=== PATIENT | male | born 1940 | race Caucasian/White ===

== ENCOUNTER → 2016-11-06 | Outpatient (CLI) | payer OTHER ==
--- NOTE | ~2016-11-06 | EXE ---
[facility] [address] [place] [employer] [place] [address] STRESS ECHOCARDIOGRAM Name: MAME BRITT Room #: NOEMI WareHolly#: [id number] Admission: 11/06/16 Attend Phys: Nick Clement, Discharge: Date of : 44 Date of Service: 11/06/16 1417 Report #: [id number] THIS REPORT FOR: //name// APPROVED REPORT Exam: Stress Echocardiogram Reason for Exam: CAD s/p CABG Patient Location: Out-Patient Stress Nurse: Gissel Bass RN HR: 56 bpm Medical History Medical History: CAD s/p CABG, HTN, Hyperlipidemia Cardiac Risk Factors: HTN, Hyperlipidemia Previous Cardiac Procedures: CABG Exercise History: Physically active Procedure The patient underwent an Exercise Stress Test using the Flavio Protocol. Blood pressure, heart rate, and EKG were monitored. An Echocardiogram was performed by metallurgy laboratory technician in four stages in quad fashion. At peak stress, four selected images were obtained and placed side by side with resting images for comparison. Testing Details Test: Exercise stress testing was performed using a Flavio protocol. HR Resting HR: 56 bpm Max Heart Rate (APMHR): 146 bpm Max HR Achieved: 144 bpm Target HR (85% APMHR): 124 bpm % of APMHR: 98 Recovery HR: 79 bpm HR response to stress: Normal HR response to stress BP Resting BP: 112/80 mmHg Max BP: 140/82 mmHg Recovery BP: 132/80 mmHg ECG Resting ECG: RBBB Stress ECG: RBBB Arrhythmia: None Recovery ECG: RBBB [facility] [address] [place] [address] STRESS ECHOCARDIOGRAM Name: BALWINDERMAME KRUSE Room #: NOEMI WareHolly#: [id number] Admission: 11/06/16 Attend Phys: Nick Clement, Discharge: Date of : 44 Date of Service: 11/06/16 1417 Report #: [id number] Clinical Reason for Termination: Maximal effort Exercise duration: 11.11 min Exercise capacity: 13.7 METs Overall Exercise Capacity for Age: Excellent Stress ECG Conclusion 1. SUBJECTIVELY NEGATIVE FOR ISCHEMIA 2. ELECTROCARDIOGRAPHICALLY NEGATIVE FOR ISCHEMIA 3. ADEQUATE FUNCTIONAL CAPACITY Pre-Stress Echo The resting Echocardiogram showed normal left ventricular contractility with an estimated Ejection Fraction of about 55-60%. Post-Stress Echo The stress Echocardiogram showed normal left ventricular contractility with an estimated Ejection Fraction of about 65-70%. Clinical Normal augmentation of myocardial wall segments using a 17 segment model. Conclusion Clinical Response: Non-ischemic Stress ECG Response: Non-ischemic Stress Echo Images: Non-ischemic 1. LOW RISK STUDY Compared to the prior study dated 10/13/2012, . Other Information Study Quality: Excellent <Conclusion> 1. LOW RISK STUDY <ELECTRONICALLY SIGNED> By: Bruce Warren MD 11/06/16 1417 16 16 Bruce Warren MD /INF
== END ==
LOC: CV 11:21
DX: I65.29 Occlusion and stenosis of unspecified carotid artery (principal)

== ENCOUNTER 2019-03-24 10:25 | Inpatient (IN) | payer OTHER ==
[2019-03-24] VITALS (7 sets, daily range): BP systolic 106–119; BP diastolic 47–62
[~2019-03-24] VITALS: Ht 180.3 cm; Wt 81.2 kg
[2019-03-24 10:43] LABS: ABSOLUTE NEUTROPHILS 5.5 thou/uL (1.4-8.2); BASOPHILS 0.5 % (0.0-2.0); HEMATOCRIT 45.2 % (42.0-52.0); HEMOGLOBIN 14.4 gm/dL (14.0-18.0); LYMPHOCYTES 7.9 % (24.0-44.0); MCH 23.1 pg (26.0-34.0); MCHC 31.8 g/dL (28.0-37.0); MCV 72.7 fL (80.0-100.0); MONOCYTES 4.6 % (1.0-8.0); PLATELET COUNT 284 thou/uL (150-400); RBC 6.22 mil/uL (4.50-6.00); RDW 19.3 % (10.5-14.5); WBC 6.3 thou/uL (4.0-11.0)
[2019-03-24] MEDS ORDERED: HYDREA 500 MG500 M1 PO (10:43)
[2019-03-24] MEDS ORDERED: NORVASC10 MG PO (10:44)
[2019-03-24] MEDS ORDERED: ACCUPRIL10 MG PO (10:44)
[2019-03-24] MEDS ORDERED: PRAVACHOL40 MG PO (10:45)
[2019-03-24] MEDS ORDERED: CRESTOR20 MG PO (10:45)
[2019-03-24] MEDS ORDERED: ASPIRIN325 PO (10:45)
[2019-03-24] MEDS ORDERED: COUMADIN 5 MG TA5 M1 PO (10:45)
[2019-03-24] MEDS ORDERED: FISH OIL 1,001000 M2 PO (10:45)
[2019-03-24] MEDS ORDERED: MULTIVITAMINS PO (10:46)
[2019-03-24] MEDS ORDERED: VITAMIN E400 UNIT PO (10:46)
[2019-03-24] MEDS ORDERED: ZYRTEC10 M5 PO (10:46)
[2019-03-24 10:51] LABS: CREATININE 1.3 mg/dL (0.7-1.3); POTASSIUM 3.8 mmol/L (3.5-5.1)
[2019-03-24 10:57] LABS: ALBUMIN 3.7 g/dL (3.4-5.0); DIRECT BILIRUBIN 0.3 mg/dL (<0.1-0.3); TOTAL BILIRUBIN 0.7 mg/dL (<0.1-1.0); TOTAL PROTEIN 7.4 g/dL (6.4-8.2)
[2019-03-24 11:37] LABS: ANISOCYTOSIS 1+; MICROCYTES 2+; PLATELET ESTIMATE NORMAL
--- NOTE | 2019-03-24 13:04 | NUR ---
ED NURSE CALLED TO GIVE REPORT TO INPATIENT NURSE AND WAS TOLD THE PT HAD NOT YET BEEN ASSIGNED A NURSE AND ED NURSE WILL HAVE TO WAIT FOR A RETURN CALL TO GIVE REPORT
[2019-03-24 17:50] LABS: INR 1.9; PROTIME 19.3 Seconds (9.3-11.4)
[2019-03-24 18:04] LABS: URINE BILIRUBIN NEGATIVE (Negative); URINE BLOOD NEGATIVE (Negative); URINE CLARITY CLEAR; URINE COLOR YELLOW; URINE GLUCOSE-RANDOM* NEGATIVE (Negative); URINE KETONES TRACE (Negative); URINE LEUKOCYTES-REFLEX NEGATIVE (Negative); URINE NITRITE-REFLEX NEGATIVE (Negative); URINE PROTEIN (DIPSTICK) NEGATIVE (Negative)
--- NOTE | 2019-03-24 20:06 | NUR ---
80 YO MALE ADMITTED TO 448. A&OX4. IV INTACT IN R AC. ORIENTED PT TO ROOM/CALL LIGHT. PT AT 1850 GOT UP TO USE THE BATHROOM W/O CALLING FIRST, ASSISTED PT TO BATHROOM. PT THEN FOUND ON FLOOR IN BATHROOM FALL WAS NOT WITNESSED. PT STATES HE DID NOT HURT HIMSELF. PT EDUCATED ON IMPORTANCE OF CALLING FOR ASSIST. FAMILY WAS NOTIFIED OF THE FALL, NOTIFIED. BED ALARM ON.
[2019-03-25 00:37] VITALS: BP 109/60
--- NOTE | 2019-03-25 02:15 | NUR ---
assumed care of pt @1900. pt was found on the bathroom floor, assessment completed and pt transfered back to bed. pt is a&ox4. ambulates with steady gait and standby assist. pt stated that he collapsed at home before been rushed to the ED. pt v/s stable. denies pain. fall prec in placed. call light within reach. no s/s of distress. will cont to monitor
[2019-03-25 03:11] VITALS: BP 118/70
[2019-03-25 05:49] LABS: HEMATOCRIT 39.9 % (42.0-52.0); HEMOGLOBIN 12.8 gm/dL (14.0-18.0); MCH 23.1 pg (26.0-34.0); MCHC 32.1 g/dL (28.0-37.0); RBC 5.54 mil/uL (4.50-6.00); RDW 19.7 % (10.5-14.5); WBC 4.6 thou/uL (4.0-11.0)
[2019-03-25 08:45] VITALS: BP 105/64
--- NOTE | 2019-03-25 10:01 | NUR ---
Nutrition: Assessed due to consult for weight change. Admitted w/ fever, community acquired pneumonia. On a regular diet. States he wasn't eating much Sun through Fri admission, but finished nearly 100% of breakfast this AM (eating all but his cereal). Already notes a huge change in appetite level. Wt loss extremely minimal, weighing 182# prior to recent acute illness < 1 wk ago, with current 179# admit wt. This reflects a 3# weight change - 1.6% insigificant wt change. He states gradually over 2-3+ yrs he has lost 20#, but was very aware of what he was doing and his eating habits. Remains at a very healthy wt and BMI 25 kg/m2. Expressed this to pt and foods to prioritize. NO further nutrition needs/concerns. Low nutrition risk.
--- NOTE | 2019-03-25 10:44 | NUR ---
INITIAL ASSESSMENT: Received high risk nursing referral. SW reviewed chart and spoke with nursing. Pt was admitted from home due to pneumonia. Pt is currently on IV abx. Pt had fever of 103.8 upon arrival in ER. SW met with pt and at bedside. Introduced role of SW. Pt is alert/orientated x 4. Pt reports he and his live at home. 2 steps to enter. 15 steps to go to the bottom level of the home. All of pt's needs can be met on the main level. Prior to admission, pt was independent with ADLs. No use of DME. No hx of services or SNF/Rehab placement. Pt's PCP is Dr. Mays. Plan is for pt to discharge home when medically stable. Attending physician to order therapy to evaluate pt for discharge needs. SW is following to assist as needed with discharge planning.
--- NOTE | 2019-03-25 18:27 | NUR ---
MEDI FINISH SANDER HERE TO RELOCATION MANAGER AND TRANSPORT PATIENT TO [facility]. IV ERICKSON LEFT PT TO HAVE IV ABTS THERE. SECURITY BROUGHT PATIENTS BELONGINGS THAT SHE HAD LOCKED UP. ALL BELONGINGS PACKED AND SENT WITH PATIENT.
--- NOTE | 2019-03-25 20:02 | NUR ---
PT HAS BEEN UP IN BEDSIDE CHAIR FOR MOST OF DAY . ATE ALL OF MEALS AND DRANK CHOCOLATE SUPPLEMENT AT [employer], THIS NURSE CLARIFIED ORDER. HAD IV ABT'S XS 2 W/O DIFFICULTY. PT PLEASANT AND COOPERATIVE WITH CARE.
[2019-03-25 20:11] VITALS: BP 116/63
[2019-03-26 05:08] VITALS: BP 124/74
[2019-03-26 05:13] LABS: HEMATOCRIT 41.5 % (42.0-52.0); MCH 22.9 pg (26.0-34.0); MCHC 31.3 g/dL (28.0-37.0); MCV 73.1 fL (80.0-100.0); RBC 5.68 mil/uL (4.50-6.00); WBC 4.7 thou/uL (4.0-11.0)
--- NOTE | 2019-03-26 05:24 | NUR ---
ASSUMED CARE OF PT AT 1900HRS. PT AOX4 AND LETS NEEDS BE KNOWN. FALL PRECAUTION IN PLACE. ABX TREATMENT CONTINUED. PT WAS ABLE TO SLEEP PART OF THE SHIFT. NO S/S OF ACUTE DISTRESS. WILL CONTINUE TO MONITOR.
[2019-03-26 05:27] LABS: CALCIUM 8.2 mg/dL (8.5-10.1); CREATININE 0.9 mg/dL (0.7-1.3); POTASSIUM 3.6 mmol/L (3.5-5.1)
[2019-03-26 08:39] VITALS: BP 106/77
[2019-03-26] MEDS ORDERED: CEFDINIR300 MG PO (12:42)
--- NOTE | 2019-03-26 14:29 | NUR ---
PHYSICIAN INDICATED THAT PT IS MEDICALLY STABLE TO DC HOME THIS DAY. HE HAD INITIALLY ORDERED FOR PT TO HAVE HH PT AND OT. CM DISCUSSED THIS WITH PT AND HE INDICATED HE WOULD PREFER TO GO TO OP PT AT [facility]. CM CONFIRMED WITH DR. SALINAS THAT HE WS AGREEABLE WITH PT DOING OUTPATIENT THERAPY AND HE INDICATED HE WAS. PT IS TO DC HOME THIS DAY AND SET UP OUTPATIENT APPOINTMENT FOR THERAPY AT [facility] IN [facility]. NO OTHER CM INTERVENTION INDICATED. CASE CLOSED.
[2019-03-26 15:31] VITALS: BP 106/77
--- NOTE | 2019-03-26 20:52 | NUR ---
Received awake on bed. Due medications given as precribed, able to swallow meds w/o difficulty. A+Ox4. On room air. With SL at R AC. Vital signs stable. Falls risk- falls bundle in place; Up ad migdalia, able to walk to the bathroom with gait belt on and standby assist. With at bedside. Pt seen by Dr Mays this AM, may go home after PM dose of IV antibiotics- pt informed. Discharge order made by Dr Mays, pt to go home with - CM informed; CM informed that pt prefers to have OT/PT as outpatient- CM called Dr Mays and he said that he is ok with it. Pt reported that he already set up appointment with [facility] for his therapies. Verified with Dr Mays re: prescription for Cefdinir- he already called in to pt's pharmacy- pt informed. Discharge instructions, follow up schedule, and med care notes given and instructed to pt. IV discontinued. Pt fetched by his , brought down via wheelchair by volunteer transport with his personal belongings.
== END 2019-03-26 16:41 | disposition home or self-care (01) | DRG 871 ==
LOC: ER 10:25 → EROBS 12:30 → 4S 12:30 → ENTRNSPT 03-26 16:29 → 4S 03-26 16:41
PROVIDERS: Emergency Medicine; ADMIT Family Medicine
DX: A41.9 Sepsis, unspecified organism (principal); J18.9 Pneumonia, unspecified organism; I10 Essential (primary) hypertension; E78.00 Pure hypercholesterolemia, unspecified; I48.91 Unspecified atrial fibrillation; J40 Bronchitis, not specified as acute or chronic; Z95.1 Presence of aortocoronary bypass graft; Z88.2 Allergy status to sulfonamides; Z79.82 Long term (current) use of aspirin; Z79.899 Other long term (current) drug therapy
CPT/HCPCS: 10102

== ENCOUNTER 2019-03-27 15:47 | Inpatient (IN) | payer OTHER ==
[~2019-03-27] VITALS: Ht 180.3 cm; Wt 85.3 kg
[~2019-03-27 15:47] MED LIST: ACCUPRIL10 MG PO; ASPIRIN325 PO; CEFDINIR300 MG PO; COUMADIN 5 MG TA5 M1 PO; CRESTOR20 MG PO; FISH OIL 1,001000 M2 PO; HYDREA 500 MG500 M1 PO; MULTIVITAMINS PO; NORVASC10 MG PO; PRAVACHOL40 MG PO; VITAMIN E400 UNIT PO; ZYRTEC10 M5 PO
[2019-03-27 15:49] VITALS: BP 79/53
[2019-03-27 16:23] LABS: ABSOLUTE NEUTROPHILS 6.8 thou/uL (1.4-8.2); BASOPHILS 0.3 % (0.0-2.0); EOSINOPHILS 0.1 % (0.0-3.0); HEMATOCRIT 42.6 % (42.0-52.0); HEMOGLOBIN 13.5 gm/dL (14.0-18.0); LYMPHOCYTES 4.2 % (24.0-44.0); MCHC 31.6 g/dL (28.0-37.0); MCV 72.7 fL (80.0-100.0); MONOCYTES 2.5 % (1.0-8.0); PLATELET COUNT 288 thou/uL (150-400); POLYS 92.9 % (36.0-66.0); RBC 5.86 mil/uL (4.50-6.00); WBC 7.3 thou/uL (4.0-11.0)
[2019-03-27 16:30] LABS: CALCIUM 8.5 mg/dL (8.5-10.1); CREATININE 1.3 mg/dL (0.7-1.3); POTASSIUM 4.1 mmol/L (3.5-5.1)
[2019-03-27 16:36] LABS: ALBUMIN 3.1 g/dL (3.4-5.0); TOTAL BILIRUBIN 0.6 mg/dL (<0.1-1.0); TOTAL PROTEIN 6.8 g/dL (6.4-8.2)
[2019-03-27 17:03] LABS: HYPOCHROMASIA 2+; MACROCYTES 1+; MICROCYTES 1+
[2019-03-27 19:07] LABS: INR 2.8; PROTIME 29.4 Seconds (9.3-11.4)
[2019-03-27 19:43] VITALS: BP 95/56
[2019-03-27 20:02] VITALS: BP 95/56
[2019-03-27 20:38] VITALS: BP 114/62
[2019-03-28 00:22] VITALS: BP 131/93
--- NOTE | 2019-03-28 03:26 | NUR ---
ASSESSMENTS CHARTED. MEDS CHARTED. PATIENT ARRIVED ON UNIT FROM THE ED AROUND 2034 WITH FAILED OUTPATIENT THERAPY. PT FEBRILE, CHILLS, HYPOTENSION AND PNEUMONIA. SETTLED INTO BED, ADMITTED INTO THE COMPUTER SYSTEM. MEDS STARTED. PLAN OF CARE IS FOR PATIENT TO RECEIVE MORE IV ANTIBIOTICS. PATIENT WILL HAVE FAMILY BRING HIS CPAP FROM HOME. UP WITH ASSIST.
[2019-03-28 04:45] VITALS: BP 97/60
[2019-03-28 04:57] LABS: INR 3.5; PROTIME 35.9 Seconds (9.3-11.4)
[2019-03-28 05:15] LABS: ALBUMIN 2.5 g/dL (3.4-5.0); CALCIUM 7.4 mg/dL (8.5-10.1); CREATININE 1.1 mg/dL (0.7-1.3); PHOSPHORUS 2.9 mg/dL (2.5-4.9); POTASSIUM 3.6 mmol/L (3.5-5.1)
[2019-03-28 07:15] VITALS: BP 94/59
[2019-03-28 11:10] VITALS: BP 97/63
[2019-03-28 15:30] VITALS: BP 99/60
--- NOTE | 2019-03-28 17:13 | NUR ---
ASSUMED CARE AT SHIFT, ALERT AND ORIENTED X4. VSS AND AFEBRILE. SCHEDULED MEDS GIVEN PRESCIPED. DENIED ANY DISCOMFORT AND WILL CONTINUE WITH CURRENT POC.
[2019-03-28 19:45] VITALS: BP 102/64
--- NOTE | 2019-03-28 23:50 | NUR ---
ASSESSMENTS CHARTED, MEDS GIVEN. RESTING EASILY DURING SHIFT. CONTINUING FLUIDS AND ANTIBIOTIC TREATMENTS. PLAN OF CARE IS TO HAVE SWALLOW EVALUATION IN MORNING. DENIES PAIN. FALL PRECAUTIONS IN PLACE
[2019-03-29 04:31] VITALS: BP 125/56
[2019-03-29 07:20] VITALS: BP 92/60
[2019-03-29 11:15] VITALS: BP 110/70
[2019-03-29 15:20] VITALS: BP 102/61
--- NOTE | 2019-03-29 17:36 | NUR ---
ASSESMENT DOCUMENTED, VSS AND AFEBRILE. PATIENT PASS THE SWALLOW EVAL. HAD 3 LOOSE BM AND CDEF IS NEGATIVE. PROGRESSING TOWARDS GOALS AND WILL CONTINUE WITH POC.
[2019-03-29 21:30] VITALS: BP 127/71
[2019-03-30 05:22] VITALS: BP 120/65
--- NOTE | 2019-03-30 05:57 | NUR ---
pt resting thru the noc , no c/o pain, up to bathroom with sba, vss, hopes to go home today, will con't to monitor per ppoc.
[2019-03-30 07:25] VITALS: BP 120/82
[2019-03-30 07:53] LABS: HEMATOCRIT 35.8 % (42.0-52.0); MCHC 31.7 g/dL (28.0-37.0); MCV 72.5 fL (80.0-100.0); RBC 4.93 mil/uL (4.50-6.00); RDW 20.8 % (10.5-14.5); WBC 6.2 thou/uL (4.0-11.0)
[2019-03-30 08:00] LABS: HEMOGLOBIN 11.3 gm/dL (14.0-18.0)
[2019-03-30 08:05] LABS: CALCIUM 8.3 mg/dL (8.5-10.1); CREATININE 0.9 mg/dL (0.7-1.3); POTASSIUM 3.6 mmol/L (3.5-5.1)
[2019-03-30] MEDS ORDERED: AZITHROMYCIN 2250 MG PO (09:18)
--- NOTE | 2019-03-30 10:19 | NUR ---
met with patient who is to dc home today. 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 he has canes at home which he has carved from [employer] or [employer]. He plans home independent. F/U apt with Dr Davon Obrien and planned possible cont outpatient therapy at [facility]. Patient to dc home independently no HH needed per patient.
[2019-03-30 11:15] VITALS: BP 96/62
[2019-03-30 13:53] VITALS: BP 96/62
--- NOTE | 2019-03-30 14:19 | NUR ---
ASSESSMENT CHARTED - MEDS PER AUG - GIVEN GUIFENISIN THIS AM . UZIEL DIET AND FLUIDS. UP AD SRINIVASA IN ROOM. NO CO'S OF PAIN OR NAUEA. PT HOME THIS AFTERNOON - IV AND MONITOR REMOVED PRIOR TO D/C. INSTRUCTION GIVEN RE HOME MEDS/ CARE AND FOLLOW UP STATED UNDERSTRANDING OF INSTRUCTION GIVEN. PT LEFT UNIT VIA WHEELCHAIR HOME VIA PVT VEHICLE ACCOMPANIED BY -NO CO'S TIME OF D/C.
== END 2019-03-30 14:19 | disposition home or self-care (01) | DRG 177 ==
LOC: ER 15:47 → 2N 18:38 → EROBS 18:38 → 2N 20:03 → ENTRNSPT 03-30 14:10 → 2N 03-30 14:19
PROVIDERS: Hospitalist; Nurse Practitioner Family; ADMIT Family Medicine
DX: J15.6 Pneumonia due to other Gram-negative bacteria (principal); E43 Unspecified severe protein-calorie malnutrition; J44.0 Chronic obstructive pulmonary disease with (acute) lower respiratory infection; D68.9 Coagulation defect, unspecified; R19.7 Diarrhea, unspecified; I10 Essential (primary) hypertension; E78.00 Pure hypercholesterolemia, unspecified; Z95.1 Presence of aortocoronary bypass graft; Z90.49 Acquired absence of other specified parts of digestive tract; Z79.82 Long term (current) use of aspirin; Z79.899 Other long term (current) drug therapy; Z88.2 Allergy status to sulfonamides
CPT/HCPCS: 10081

== ENCOUNTER 2019-03-31 19:44 | Inpatient (IN) | payer OTHER ==
[~2019-03-31] VITALS: Ht 180.3 cm; Wt 82.9 kg
[~2019-03-31 19:44] MED LIST changes: +AZITHROMYCIN 2250 MG PO
[2019-03-31 19:45] VITALS: BP 110/61
[2019-03-31 20:23] LABS: ABSOLUTE NEUTROPHILS 7.2 thou/uL (1.4-8.2); BASOPHILS 0.3 % (0.0-2.0); HEMATOCRIT 38.6 % (42.0-52.0); HEMOGLOBIN 12.3 gm/dL (14.0-18.0); LYMPHOCYTES 3.4 % (24.0-44.0); MCH 22.9 pg (26.0-34.0); MCHC 31.7 g/dL (28.0-37.0); MCV 72.3 fL (80.0-100.0); PLATELET COUNT 366 thou/uL (150-400); POLYS 91.3 % (36.0-66.0); RBC 5.34 mil/uL (4.50-6.00); RDW 21.1 % (10.5-14.5); WBC 7.9 thou/uL (4.0-11.0)
[2019-03-31 20:24] LABS: CALCIUM 8.5 mg/dL (8.5-10.1); CREATININE 1.1 mg/dL (0.7-1.3); POTASSIUM 3.8 mmol/L (3.5-5.1)
[2019-03-31 20:30] LABS: ALBUMIN 2.8 g/dL (3.4-5.0); DIRECT BILIRUBIN 0.3 mg/dL (<0.1-0.3); TOTAL BILIRUBIN 1.1 mg/dL (<0.1-1.0); TOTAL PROTEIN 6.4 g/dL (6.4-8.2)
[2019-03-31 21:19] LABS: URINE BILIRUBIN NEGATIVE (Negative); URINE BLOOD NEGATIVE (Negative); URINE CLARITY CLEAR; URINE COLOR YELLOW; URINE GLUCOSE-RANDOM* NEGATIVE (Negative); URINE KETONES NEGATIVE (Negative); URINE LEUKOCYTES-REFLEX NEGATIVE (Negative); URINE NITRITE-REFLEX NEGATIVE (Negative); URINE PROTEIN (DIPSTICK) TRACE (Negative); URINE SPECIFIC GRAVITY 1.015 (1.005-1.035); URINE UROBILINOGEN 0.2 E.U./dl (0.2-1.0)
[2019-03-31 22:06] VITALS: BP 101/54
[2019-03-31 22:23] VITALS: BP 91/54
[2019-03-31 22:50] VITALS: BP 93/52
[2019-04-01 03:17] VITALS: BP 120/65
--- NOTE | 2019-04-01 05:41 | NUR ---
PT ARRIVED FROM ER VIA CART. PLACED IN ROOM 357. ADMISSION ASSESSMENTS COMPLETED. PT NOTED TO HAVE BEEN DISCHARGED FROM [facility] ON 03/30/19. PT MAKING POOR PROGRESS TOWASDS GOALS. DENIES ANY SOA WHILE AT REST, O2 AT 5L PER NC. PT O2 SAT REPORTEDLY 89% ON 4L BUT UP TO 94% ON 5 LITERS. BRIEFLY WORE CPAP OVERNIGHT. ARRIVED HERE WITH ORAL TEMP 99 DEGREES. THIS AM ORAL TEMP 103 DEGREES, TYLENOL GIVEN. ORAL TEMP NOW 101.2. CONTINUE TO MONITOR.
[2019-04-01 08:32] VITALS: BP 110/56
--- NOTE | 2019-04-01 16:09 | 2DMMODE ---
[facility] [address] [place] [address] 2 D/M-MODE ECHOCARDIOGRAM Name: MAME BRITT A Room #: 357-P [facility] IN ..#: [id number] Admission: 03/31/19 Attend Phys: Johnson Mays, Discharge: Date of : 44 Report #: [id number] THIS REPORT FOR: //name// APPROVED REPORT Study performed: 04/01/2019 13:55:49 EXAM: Comprehensive 2D, Doppler, and color-flow Echocardiogram Patient Location: Bedside Room #: 357 Status: routine BSA: 2.03 HR: 85 bpm BP: 110/56 mmHg Other Information Study Quality: Adequate Indications CAD Hypertension/HDD 2D Dimensions RVDd: 46.10 mm IVSd: 9.24 (7-11mm) LVOT Diam: 21.11 (18-24mm) LVDd: 54.87 mm PWd: 7.80 (7-11mm) Ascending Ao: 35.91 (22-36mm) LVDs: 35.21 (25-40mm) Aortic Root: 39.18 mm IVC: 29.00 mm Volumes Left Atrial Volume (Systole) Single Plane 4CH: 109.47 mL Single Plane 2CH: 141.03 mL LA ESV Index: 66.00 mL/m2 Aortic Valve AoV Peak Omer.: 2.12 m/s AO Peak Gr.: 18.05 mmHg LVOT Max P.14 mmHg AO Mean Gr.: 8.86 mmHg LVOT Mean P.42 mmHg AO V2 Mean: 1.35 m/s LVOT Max V: 1.34 m/s AO V2 VTI: 36.68 cm LVOT Mean V: 0.85 m/s JIMBO (VTI): 2.20 cm2 LVOT V1 VTI: 23.11 cm JIMBO Vmax: 2.20 cm2 SV (LVOT): 80.85 mL [facility] [place] [address] 2 D/M-MODE ECHOCARDIOGRAM Name: MAME BRITT Room #: 357-P [facility] IN ..#: [id number] Admission: 03/31/19 Attend Phys: Johnson Mays, Discharge: Date of : 44 Report #: [id number] Mitral Valve E/A Ratio: 1.2 MV Decel. Time: 164.73 ms MV E Max Omer.: 1.18 m/s MV A Omer.: 1.01 m/s MV PHT: 47.77 ms IVRT: 73.82 ms Pulmonary Valve PV Peak Omer.: 0.95 m/s PV Peak Gr.: 3.60 mmHg Tricuspid Valve TR Peak Omer.: 2.54 m/s RAP Estimate: 15.00 mmHg TR Peak Gr.: 25.88 mmHg PA Pressure: 42.00 mmHg Left Ventricle Left ventricle is at the upper limits of normal. There is normal left ventricular wall thickness. The left ventricular systolic function is normal. The left ventricular ejection fraction is within the normal range. LVEF is 60%. Moderate diastolic dysfunction is present (pseudonormal filling). Right Ventricle Right ventricle is mildly dilated. The right ventricular systolic function is normal. Atria Left atrium is severely dilated. Right atrium is moderately dilated. Aortic Valve Aortic valve is mildly calcified. Trace aortic regurgitation. There is no aortic valvular stenosis. Mitral Valve Mild mitral annular calcification. Mild mitral regurgitation. No evidence of mitral valve stenosis. Tricuspid Valve The tricuspid valve is normal in structure. Mild to moderate tricuspid regurgitation. PAP is estimated at42 mmHg. Pulmonic Valve The pulmonary valve is normal in structure. Trace to mild pulmonic regurgitation. [address] [address] 2 D/M-MODE ECHOCARDIOGRAM Name: MAME BRITT Gonsalo Room #: 357-P [facility] IN [facility]#: [id number] Admission: 03/31/19 Attend Phys: Johnson Mays, Discharge: Date of : 44 Report #: [id number] Great Vessels Aortic root is mildly dilated 3.9 cm. IVC is dilated and collapses <50% with inspiration. Pericardium There is no pericardial effusion. <Conclusion> Left ventricle is at the upper limits of normal. LVEF is 60%. Right ventricle is mildly dilated. Left atrium is severely dilated. Right atrium is moderately dilated. Aortic valve is mildly calcified. Trace aortic regurgitation. Mild mitral annular calcification. Mild mitral regurgitation. The tricuspid valve is normal in structure. Mild to moderate tricuspid regurgitation. PAP is estimated at42 mmHg. The pulmonary valve is normal in structure. Trace to mild pulmonic regurgitation. There is no pericardial effusion. <ELECTRONICALLY SIGNED> By: Bruce Warren MD 04/01/19 1609 1609 1609 Bruce Warren MD /INF
--- NOTE | 2019-04-01 16:13 | NUR ---
ASSESSMENT: CM REVIEWED CHART AND MET WITH PATIENT AT THE BEDSIDE. PT WAS ADMITTED WITH FEVER/DIARRHEA. PT WAS RECENTLY JUST HERE AT [facility]. PT LIVES IN A HOUSE WITH HIS . PT REPORTS HE IS FULLY INDEPENDENT WITH ADLS AND AMBULATION. PT STATES HE HAS ABOUT 15 STEPS WITH HANDRAILS TO GET ONTO THE MAIN LEVEL OF HIS HOME. PT REPORTS THAT HE WAS GOING TO DO OUTPATIENT THERAPY AT [facility]. PT REPORTS HE HAS NOT HAD HH IN THE PAST NOR BEEN TO A SNF. PT ANTICIPATES DISCHARGING HOME ONCE STABLE. CM WILL CONTINUE TO FOLLOW TO ASSIST NEEDED.
[2019-04-01 17:09] VITALS: BP 123/68
--- NOTE | 2019-04-01 19:26 | NUR ---
Assumed care approx. 0700 this AM. Patient ALOx4. Patient fever free most of shift, but noted to have a low grade fever around 1700. O2 titrated to 4LNC. Cont. pulse ox. present. Family updated with any questions/concerns. Fluids infusing per orders. Still waiting on patient to have a BM for stool sample to be sent down. Not much progress toward plan of care as the patient is concerned about his source of fever that hasn't been found yet.
[2019-04-01 19:33] VITALS: BP 110/65
[2019-04-02 03:43] VITALS: BP 124/78
[2019-04-02 07:32] VITALS: BP 108/77
--- NOTE | 2019-04-02 08:30 | NUR ---
PATIENT IS ALERT AND ORIENTED. PATEINT FEVER WAS TREATED WITH PAIN MEDICATION. PATIENT IS NSR WITH BBB ON TELE. PATIENT IS 3LNC STATS IN THE 90'S PATIENT IS ON CONTINOUS PULSE OX. PATIENT IS CPAP HS. PATIENT HAS BLOOD TINGED SPUTUM. PROVIDER AWARE PATIENT HAS NOT TRAVELED OUTSIDE THE COUNTRY IN THE LAST 21 DAY. VIRAL PANEL SWAB SENT. PROVIDER AWARE. PATIENT IS RESTING COMFORTABLY IN BED. WCM. DENIES PAIN.
[2019-04-02 11:47] VITALS: BP 117/70
--- NOTE | 2019-04-02 12:58 | HC ---
[facility] [place] [address] CONSULTATION Name: MAME BRITT A Room #: 357-P [facility] IN M.R.#: [id number] Admission: 03/31/19 Attend Phys: Johnson Mays MD Discharge: Date of : 44 Report #: [id number] THIS REPORT FOR: //name// CC: Johnson Mays DATE OF SERVICE: 04/01/2019 INFECTIOUS DISEASE CONSULTATION REASON FOR CONSULTATION: I was asked to evaluate concerning FUO. HISTORY OF PRESENT ILLNESS: The patient was a 78-year-old who was hospitalized initially on 03/24/2019 with fever, nonproductive cough, shortness of breath. He was diagnosed with suspected community-acquired pneumonia and treated with azithromycin and Omnicef. While hospitalized, he did note onset of diarrhea. In retrospect, the patient as he has thought about it was noting GI upset prior to that hospital stay. He had had a burrito several days before this. This was at a local fast food restaurant. It is noted that his ate the similar food. Following this, he noticed GI upset with some mild nausea and beginnings of loose stool. He had had mild bloating. No abdominal pain. He has had some mild weight loss during this 2-week span of time. Despite being on antibiotic therapy, his fever had persisted. Initially 101 range, but then got up to 103 degrees. He was rehospitalized and placed on Zosyn. Despite this, he continues to have fever. In addition, he notes minimal cough. No pleuritic chest pain. His oxygen requirements have gone from none at home to now 5 liters. He denies any chest pain or palpitations. He has had no previous history of pneumonia. He has had coronary bypass grafting and is a nonsmoker. His GI symptoms have persisted. He now notes black to dark green stools over the past week with occasional mucus. He has noticed no gross blood. He has had no abdominal pain or cramping. No nausea or vomiting. He carries a diagnosis of polycythemia vera and has been on hydroxyurea, which is relatively new drug for him. He states being on this for about 3-4 weeks. He also is on Coumadin, aspirin and antihypertensive therapy. The patient has had no travel outside [place]. No animal exposure. He lives with his . She has otherwise been healthy. Associated with these fevers have been mild chills with no sweats. ALLERGIES: SULFA, REACTION NOT KNOWN. MEDICATIONS: Included hydroxyurea, Norvasc, Accupril, Pravachol, Coumadin, aspirin, fish oil, vitamin E, Zyrtec, multivitamin, azithromycin, cefdinir. Most recently, Zosyn and ceftriaxone. His antibiotics were discontinued today. [address] [address] CONSULTATION Name: MAME BRITT A Room #: 357-P [facility] IN M.R.#: [id number] Admission: 03/31/19 Attend Phys: Johnson Mays MD Discharge: Date of : 44 Report #: [id number] PAST MEDICAL HISTORY: Coronary artery disease, coronary bypass grafting, tonsillectomy, obstructive sleep apnea, COPD, cholecystectomy, hypertension, hyperlipidemia, seasonal allergies, polycythemia vera. FAMILY HISTORY: Noncontributory. SOCIAL HISTORY: Nonsmoker. Minimal alcohol intake. No HIV risk factors or tuberculosis exposure. REVIEW OF SYSTEMS: Full 10-point review was negative other than what is described above. PHYSICAL EXAMINATION: VITAL SIGNS: Maximum temperature today was 103.1 degrees. Currently, he was febrile and hemodynamically stable. GENERAL: He was sitting up in his chair, alert, cooperative, in no acute distress. He gave a good history. Mental status was normal. Mood was normal. SKIN: Without rash or decubitus. No palpable adenopathy. HEENT: Eyes without scleral icterus. Mouth without mucositis. NECK: Supple. No thyromegaly or mass appreciated. LUNGS: Clear. HEART: Regular, without murmur, gallop or rub. ABDOMEN: Soft and nontender with no hepatosplenomegaly or mass appreciated. GENITORECTAL: Not performed. EXTREMITIES: Without clubbing, cyanosis or edema. NEUROLOGIC: Cranial nerves intact. Strength in his upper and lower extremities was normal. Sensation in upper and lower extremities normal. Deep tendon reflexes were normal. LABORATORY STUDIES: CT scan of the abdomen and pelvis showed evidence of vascular disease, but no evidence of colitis, diverticulitis or abscess. Chest x-ray was clear. Blood cultures negative to date. Previous C. difficile PCR was negative. Sodium 133, potassium 3.8, bicarbonate of 20, creatinine 1.1. Liver function tests normal. LDH 350. Urinalysis unremarkable. Lactate 1.8. Hemoglobin 12.3, platelet count 366,000, WBC 7.9 with 91% segs, 3% lymphs. IMPRESSION: A 78-year-old with persistent fever despite antibiotic usage. He has been on hydroxyurea for a short period of time. His main complaints now are gastrointestinal related and shortness of breath. It has been reported to me that his stool guaiac was negative for blood. I would still be concerned that we are dealing with an intestinal tract infection, noting that his symptoms seemed to have started after he ate from a fast food restaurant and is immunocompromised. This, however, would not explain his hypoxia. There was no infiltrate seen on his chest x-ray would then need to be explained by shunting from another source. [facility] [address] [place] [address] CONSULTATION Name: MAME BRITT Room #: 357-P ADM IN M.R.#: [id number] Admission: 03/31/19 Attend Phys: Johnson Mays MD Discharge: Date of : 44 Report #: [id number] Will need further evaluation for fever, sources of which would include enteritis, colitis, vasculitis, malignancy. So far, I am not seeing any evidence of subacute bacterial endocarditis. Next, we will need to explain further his hypoxia. RECOMMENDATIONS: We will hold his hydroxyurea. Obtain cultures of blood, urine, stool. Check sedimentation rate, CRP. Evaluate further for evidence of oxygen shunting to include echocardiogram and possibly V/Q scan or CT angiogram. If his stool studies are not helpful in establishing his diagnosis, would pursue endoscopy to assess for mucosal disease such as ischemia or vasculitis. So far, no other CBC changes concerning for lymphoproliferative disorder, but need to keep this in the differential. Case was discussed with attending. We will hold antibiotics for the next 24 hours and reassess. <ELECTRONICALLY SIGNED> By: Ariel Grant MD 04/02/19 1258 [id number] Ariel Grant MD /nt
--- NOTE | 2019-04-02 13:41 | NUR ---
on-going assessment: CM REVIEWED CHART. PT HAD LOW GRADE FEVER OVERNIGHT AND IS NOW AFEBRILE. PT IS SLOWLY PROGRESSING TOWARDS DISCHARGE GOALS. PT REPORTS HE WILL HAVE NO NEEDS FROM CM AT DISCHARGE.
[2019-04-02 15:16] VITALS: BP 107/62
--- NOTE | 2019-04-02 15:46 | NUR ---
Assumed care approx. 0700 this AM. Patient started on swish and spit nystatin. Low grade fever noted throughout the shift. Currently waiting to collect another stool sample. Patient tolerating 3LNC well at this time. SR w/ BBB on the monitor. Patient stated he doesn't feel any worse and possibly a little better than prior to admission. Patient waiting to hear on the plan from GI on Friday to see what they would like to do as far as interventions. Patient slowly progressing toward plan of care.
[2019-04-02 19:04] VITALS: BP 114/62
--- NOTE | 2019-04-03 03:06 | NUR ---
patient is alert and oriented. patient is up ad migdalia. patient is nsr c bbb on tele. patinet is 3l nc (baseline is room air). patients viral panel is still pending. patient is c pap hs. patients lbm was the 4th. patient is pending scope on manday. patient denies pain patient is resting comfortably in bed. wcm. patient is progressing to goals.
[2019-04-03 04:11] VITALS: BP 117/74
[2019-04-03 07:51] VITALS: BP 122/84
--- NOTE | 2019-04-03 13:54 | NUR ---
pt's assessment has done, pt is A&OX3, PT is continuing o2 2L/MIN/NC, PT'S VS are stable at this time, pt does not fever since past shift, pt denies pain and sob at this time.pt gets up to chair for meals. pt has meeting some care plan goals at this time.
[2019-04-03 15:53] VITALS: BP 128/81
[2019-04-03 19:20] VITALS: BP 114/66
--- NOTE | 2019-04-04 04:26 | NUR ---
ASSUMED PT CARE AT 1900 WITH NO SIGN OF DISTRESS NOTED IN PT. PT IS ALERT AND ORIENTED. PT IS SITTING IN CHAIR. NO FAMILY AT BEDSIDE. ASSESSMENT COMPLETED AND CHARTED. SCHEDULED MEDS ADMINISTERED TO PT. PT TOLERATED PO INTAKE. VITAL SIGNS STABLE. DENIES ANY FURTHER NEEDS AT THIS TIME
[2019-04-04 04:30] VITALS: BP 119/79
[2019-04-04 08:21] VITALS: BP 124/81
[2019-04-04 09:12] LABS: HEMATOCRIT 39.5 % (42.0-52.0); HEMOGLOBIN 12.5 gm/dL (14.0-18.0); MCH 23.1 pg (26.0-34.0); MCHC 31.7 g/dL (28.0-37.0); MCV 72.8 fL (80.0-100.0); RBC 5.42 mil/uL (4.50-6.00); RDW 21.5 % (10.5-14.5); WBC 5.6 thou/uL (4.0-11.0)
[2019-04-04 09:30] LABS: CREATININE 0.8 mg/dL (0.7-1.3); POTASSIUM 3.8 mmol/L (3.5-5.1); TOTAL BILIRUBIN 0.7 mg/dL (<0.1-1.0); TOTAL PROTEIN 6.8 g/dL (6.4-8.2)
[2019-04-04 11:05] VITALS: BP 159/72
[2019-04-04 11:47] VITALS: BP 159/72
--- NOTE | 2019-04-04 11:55 | NUR ---
pt's assesment has done , pt is A&OX3, pt has off o2 today,pt denies SOB and pain, pt's vs and o2sat are normal, RN has called dr to report Lab ,and chest X-RAY results, and received order pt D/C to home today.
--- NOTE | 2019-04-04 13:40 | NUR ---
RN has giving discharged teaching, pt understanders well, pt's family sampler pickup pt to go home about 1325pm.
[2019-04-05 17:07] LABS: PARVOVIRUS IGM 0.2 index (0.0-0.8)
[2019-04-06 14:11] LABS: PARVOVIRUS IGG 5.2 index (0.0-0.8)
[2019-04-06 21:10] LABS: ADENOVIRUS Negative (Negative); INFLUENZA A Negative (Negative); INFLUENZA B Negative (Negative); METAPNEUMOVIRUS Negative (Negative); PARAINFLUENZA 1 Negative (Negative); PARAINFLUENZA 2 Negative (Negative); PARAINFLUENZA 3 Negative (Negative); RHINOVIRUS Negative (Negative); RSV A Negative (Negative); RSV B Negative (Negative)
== END 2019-04-04 13:16 | disposition home or self-care (01) | DRG 203 ==
LOC: ER 19:44 → 3W 22:02 → EROBS 22:02 → 3W 22:30
PROVIDERS: Emergency Medicine; Specialist; ADMIT Family Medicine
PROC: 5A09357 Assistance with Respiratory Ventilation, Less than 24 Consecutive Hours, Continuous Positive Airway Pressure (ICD-10-PCS; principal; 2019-04-01)
PROC: 5A09357 Assistance with Respiratory Ventilation, Less than 24 Consecutive Hours, Continuous Positive Airway Pressure (ICD-10-PCS; 2019-04-02)
PROC: 5A09357 Assistance with Respiratory Ventilation, Less than 24 Consecutive Hours, Continuous Positive Airway Pressure (ICD-10-PCS; 2019-04-03)
PROC: 5A09357 Assistance with Respiratory Ventilation, Less than 24 Consecutive Hours, Continuous Positive Airway Pressure (ICD-10-PCS; 2019-04-04)
DX: J40 Bronchitis, not specified as acute or chronic (principal); R50.9 Fever, unspecified; E78.00 Pure hypercholesterolemia, unspecified; I10 Essential (primary) hypertension; I25.10 Atherosclerotic heart disease of native coronary artery without angina pectoris; G47.33 Obstructive sleep apnea (adult) (pediatric); E78.5 Hyperlipidemia, unspecified; D75.1 Secondary polycythemia; D50.9 Iron deficiency anemia, unspecified; Z95.1 Presence of aortocoronary bypass graft; Z88.2 Allergy status to sulfonamides; Z90.49 Acquired absence of other specified parts of digestive tract; R09.02 Hypoxemia
CPT/HCPCS: 10879

== ENCOUNTER → 2019-08-03 | Outpatient (CLI) | payer OTHER | LOC: SJCVCIMAG 09:44 | DX: I25.810 Atherosclerosis of coronary artery bypass graft(s) without angina pectoris (principal); E78.00 Pure hypercholesterolemia, unspecified; I10 Essential (primary) hypertension; Z95.1 Presence of aortocoronary bypass graft; Z72.89 Other problems related to lifestyle ==

== ENCOUNTER → 2020-05-11 | Outpatient (CLI) | payer OTHER | LOC: SJCVC 10:40 | PROVIDERS: ATTEND Internal Medicine Cardiovascular Disease | DX: I25.10 Atherosclerotic heart disease of native coronary artery without angina pectoris (principal); R94.31 Abnormal electrocardiogram [ECG] [EKG]; I49.9 Cardiac arrhythmia, unspecified; I45.2 Bifascicular block; I10 Essential (primary) hypertension; E78.00 Pure hypercholesterolemia, unspecified; I65.23 Occlusion and stenosis of bilateral carotid arteries; D45 Polycythemia vera; D68.59 Other primary thrombophilia; G47.30 Sleep apnea, unspecified; Z95.1 Presence of aortocoronary bypass graft; Z95.5 Presence of coronary angioplasty implant and graft; Z79.01 Long term (current) use of anticoagulants; Z79.899 Other long term (current) drug therapy; Z86.73 Personal history of transient ischemic attack (TIA), and cerebral infarction without residual deficits ==

== ENCOUNTER → 2020-12-18 | Outpatient (CLI) | payer OTHER | LOC: SJCVCIMAG 09:53 | PROVIDERS: ATTEND Internal Medicine Cardiovascular Disease | DX: I65.23 Occlusion and stenosis of bilateral carotid arteries (principal); I08.1 Rheumatic disorders of both mitral and tricuspid valves; R06.00 Dyspnea, unspecified; R53.83 Other fatigue; I25.810 Atherosclerosis of coronary artery bypass graft(s) without angina pectoris; E78.00 Pure hypercholesterolemia, unspecified; I10 Essential (primary) hypertension; D45 Polycythemia vera; I48.91 Unspecified atrial fibrillation; G47.33 Obstructive sleep apnea (adult) (pediatric); E78.5 Hyperlipidemia, unspecified; Z90.49 Acquired absence of other specified parts of digestive tract; Z95.1 Presence of aortocoronary bypass graft; Z98.890 Other specified postprocedural states; Z88.2 Allergy status to sulfonamides; Z79.01 Long term (current) use of anticoagulants; Z79.82 Long term (current) use of aspirin; Z79.899 Other long term (current) drug therapy; Z86.73 Personal history of transient ischemic attack (TIA), and cerebral infarction without residual deficits; Z82.49 Family history of ischemic heart disease and other diseases of the circulatory system ==

== ENCOUNTER → 2021-01-08 | Outpatient (CLI) | payer OTHER | LOC: HYPER 10:46 | PROVIDERS: ATTEND Emergency Medicine Emergency Medical Services | DX: S91.001A Unspecified open wound, right ankle, initial encounter (principal); S81.811A Laceration without foreign body, right lower leg, initial encounter; S90.521A Blister (nonthermal), right ankle, initial encounter; L97.812 Non-pressure chronic ulcer of other part of right lower leg with fat layer exposed; L03.115 Cellulitis of right lower limb; D45 Polycythemia vera; I48.91 Unspecified atrial fibrillation; E78.5 Hyperlipidemia, unspecified; I10 Essential (primary) hypertension; G47.33 Obstructive sleep apnea (adult) (pediatric); Z79.82 Long term (current) use of aspirin; Z79.01 Long term (current) use of anticoagulants; Z79.899 Other long term (current) drug therapy; X58.XXXA Exposure to other specified factors, initial encounter; Y93.89 Activity, other specified; Y92.89 Other specified places as the place of occurrence of the external cause; Y99.8 Other external cause status ==

== ENCOUNTER → 2021-01-22 | Outpatient (CLI) | payer OTHER | LOC: HYPER 09:11 | PROVIDERS: ATTEND Emergency Medicine Emergency Medical Services | DX: S81.811D Laceration without foreign body, right lower leg, subsequent encounter (principal); L97.812 Non-pressure chronic ulcer of other part of right lower leg with fat layer exposed; L03.115 Cellulitis of right lower limb; D45 Polycythemia vera; I48.91 Unspecified atrial fibrillation; E78.5 Hyperlipidemia, unspecified; I10 Essential (primary) hypertension; G47.33 Obstructive sleep apnea (adult) (pediatric); X58.XXXD Exposure to other specified factors, subsequent encounter ==

== ENCOUNTER → 2021-02-19 | Outpatient (CLI) | payer OTHER | LOC: HYPER 10:38 | PROVIDERS: ATTEND Emergency Medicine Emergency Medical Services | DX: S81.811D Laceration without foreign body, right lower leg, subsequent encounter (principal); L97.812 Non-pressure chronic ulcer of other part of right lower leg with fat layer exposed; L03.115 Cellulitis of right lower limb; D45 Polycythemia vera; I48.91 Unspecified atrial fibrillation; E78.5 Hyperlipidemia, unspecified; I10 Essential (primary) hypertension; G47.33 Obstructive sleep apnea (adult) (pediatric); X58.XXXD Exposure to other specified factors, subsequent encounter ==

== ENCOUNTER → 2021-08-15 | Outpatient (CLI) | payer OTHER | LOC: SJCVC 10:43 | PROVIDERS: ATTEND Internal Medicine Cardiovascular Disease | DX: I44.4 Left anterior fascicular block (principal); I45.10 Unspecified right bundle-branch block; I48.0 Paroxysmal atrial fibrillation; R94.31 Abnormal electrocardiogram [ECG] [EKG]; I25.810 Atherosclerosis of coronary artery bypass graft(s) without angina pectoris; I10 Essential (primary) hypertension; E78.00 Pure hypercholesterolemia, unspecified; I65.23 Occlusion and stenosis of bilateral carotid arteries; D68.59 Other primary thrombophilia; D45 Polycythemia vera; Z95.1 Presence of aortocoronary bypass graft; Z86.73 Personal history of transient ischemic attack (TIA), and cerebral infarction without residual deficits; Z90.49 Acquired absence of other specified parts of digestive tract; Z98.61 Coronary angioplasty status; G47.30 Sleep apnea, unspecified; Z88.5 Allergy status to narcotic agent; Z79.82 Long term (current) use of aspirin; Z79.899 Other long term (current) drug therapy ==